=== PATIENT | male | born 1975 | race Hispanic/Latino ===

== ENCOUNTER → 2024-08-03 | Outpatient (REF) | payer OTHER | LOC: MRI 08:35 | PROVIDERS: ATTEND Family Medicine | DX: M79.672 Pain in left foot (principal); M79.671 Pain in right foot ==

== ENCOUNTER → 2024-08-06 | Outpatient (REF) | payer OTHER | LOC: MRI 08:39 | PROVIDERS: ATTEND Family Medicine | DX: M79.671 Pain in right foot (principal) ==